=== PATIENT | female | born 1980 | race Caucasian/White ===

== ENCOUNTER → 2017-12-07 | Outpatient (CLI) | payer OTHER ==
[~2017-12-07] MED LIST: BUPR150ER; HYDACE5 PO; NAPR550 PO; ORACON; OXYACE5T PO; RXHYDACE PO; TOBR.3OPSO OP
== END ==
LOC: LAB 13:55 → LAB SHORT 13:55
DX: Z51.81 Encounter for therapeutic drug level monitoring (principal); F11.20 Opioid dependence, uncomplicated; Z79.899 Other long term (current) drug therapy
CPT/HCPCS: G0480